=== PATIENT | male | born 1985 | race Caucasian/White ===

== ENCOUNTER → 2016-09-02 | Outpatient (CLI) | payer OTHER ==
[2016-09-02 11:49] LABS: BASOPHILS # (AUTO) 0.05 10*3/UL; BASOPHILS % (AUTO) 0.7 % (0-1); EOSINOPHILS % (AUTO) 1.9 % (0-8); HEMATOCRIT 47.6 % (42.0-52.0); HEMOGLOBIN 17.2 g/dL (14.0-18.0); IMM GRAN % (AUTO) 0.3 % (0-5); IMM GRAN# (AUTO) 0.02 10*3/UL; LYMPHOCYTES # (AUTO) 2.39 10*3/uL; LYMPHOCYTES % (AUTO) 34.8 % (10-50); MEAN CORPUSCULAR HGB CONC 36.1 g/dL (33-37); MEAN PLATELET VOLUME 10.1 FL (7.4-12.2); MONOCYTES # (AUTO) 0.57 10*3/UL (0.3-0.8); MONOCYTES % (AUTO) 8.3 % (5-15); NEUTROPHILS # (AUTO) 3.71 10*3/UL; RDW COEFFICIENT OF VARIATION 13.8 % (11.5-14.5); RED BLOOD COUNT 5.74 10^6/uL (4.70-6.10); WHITE BLOOD COUNT 6.87 10^3/uL (4.8-10.8)
[2016-09-02 11:57] LABS: PLATELET MORPHOLOGY COMMENT NORMAL MORPHOLOGY (NORM)
[2016-09-02 12:04] LABS: AMYLASE 108 U/L (30-110); ASPARTATE AMINO TRANSFERASE 48 IU/L (21-57); BILIRUBIN,TOTAL 1.5 mg/dL (0.3-1.2); BLOOD UREA NITROGEN 9 mg/dL (7-22); CALCIUM 9.4 mg/dL (8.7-10.7); CHLORIDE 108 meq/L (98-112); EST GLOMERULAR FILTRATION > 60 (>60 ml/min/1.73m(2)); GLUCOSE 98 mg/dL (78-110); POTASSIUM 3.5 meq/L (3.8-5.2); SODIUM 142 meq/L (135-145); TOTAL PROTEIN 7.6 g/dL (6.1-8.0)
[2016-09-03 11:49] LABS: HEP B CORE IGM ANTIBODY Negative (Negative); HEPATITIS B SURFACE AG Negative (Negative)
[2016-09-03 18:29] LABS: HEPATITIS C ANTIBODY SCREEN Negative (Negative)
== END ==
LOC: MOB LAB 11:15
PROVIDERS: ATTEND Physician Assistant Medical
DX: R10.13 Epigastric pain (principal); R19.7 Diarrhea, unspecified; A08.4 Viral intestinal infection, unspecified
CPT/HCPCS: 36415; 80053; 82150; 83690; 85025; 86705; 86709; 86803; 87340